=== PATIENT | female | born 1970 | race Caucasian/White ===

== ENCOUNTER 2024-01-16 08:36 | Outpatient (CLI) | payer BC, SELFPAY | END 2024-01-16 08:37 | disposition home or self-care (01) | LOC: NFLDREF 02-05 10:02 | PROVIDERS: PCP Family Medicine; Referring Provider Family Medicine; Visit Provider Family Medicine | DX: R55 Syncope and collapse (principal); Z13.6 Encounter for screening for cardiovascular disorders | CPT/HCPCS: 80053; 80061 ==